=== PATIENT | female | born 1995 | race Two or more races ===

== ENCOUNTER 2019-06-23 11:56 | Emergency (ER) | payer OTHER ==
[~2019-06-23] VITALS: Ht 149.9 cm; Wt 74.8 kg
[2019-06-23 12:03] VITALS: BP 140/100
[2019-06-23] MEDS ORDERED: KETOROLAC TROMETH 60MG/2ML VIAL IM ONE (13:00)
== END 2019-06-23 13:31 | disposition home or self-care (01) ==
LOC: ER 11:56 → EDBD 11:56 → ER 13:31
DX: S39.012A Strain of muscle, fascia and tendon of lower back, initial encounter (principal); S46.912A Strain of unspecified muscle, fascia and tendon at shoulder and upper arm level, left arm, initial encounter; W01.0XXA Fall on same level from slipping, tripping and stumbling without subsequent striking against object, initial encounter; Y93.89 Activity, other specified; Y92.89 Other specified places as the place of occurrence of the external cause; Y99.8 Other external cause status
CPT/HCPCS: 72100; 73030; 96372; 99284; J1885